=== PATIENT | female | born 1955 | race Caucasian/White ===

== ENCOUNTER 2017-03-29 09:30 | Day surgery (SDC) | payer BC ==
[~2017-03-29 09:30] MED LIST: Lactated Ringers 1,000 ML IV SCH; Sodium Chloride 0.9% 5 ML Syringe FLUSH PRN
[2017-03-29] MEDS ORDERED: Midazolam 1 MG/ML 2 ML SDV ONE (11:07)
[2017-03-29] MEDS ORDERED: Propofol 200 MG/20 ML SDV ONE ×2 (11:07→11:43)
[2017-03-29] MEDS ORDERED: Propofol 200 MG/20 ML SDV IV ONE (11:25)
[2017-03-29] MEDS ORDERED: Midazolam 1 MG/ML 2 ML SDV IV ONE (11:25)
--- NOTE | 2017-03-29 11:32 | PCM.PN ---
- General Info Date of Service: 03/29/17 - Review of Systems Systems Review Comment:: 61 y/o female here for her initial screening colonoscopy. She is medically stable to proceed. I have discussed the proposed colonoscopy with the patient. Risks such as but not limited to bleeding and GI injury reviewed and she agrees to proceed. - Patient Data Vitals - Most Recent: Last Vital Signs Temp 98.6 F 03/29/17 09:51 Pulse 75 03/29/17 09:51 Resp 18 03/29/17 09:51 BP 137/77 03/29/17 09:51 Pulse Ox 97 03/29/17 09:51 Weight - Most Recent: 51.483 kg Med Orders - Current: Current Medications Lactated Ringer's (Ringers, Lactated) 1,000 mls @ 50 mls/hr IV ASDIRECTED VERONIKA Last Admin: 03/29/17 09:56 Dose: 50 mls/hr Sodium Chloride (Syrex Flush) 5 ml FLUSH Q8HR PRN PRN Reason: Keep Vein Open Discontinued Medications Midazolam HCl (Versed 1 Mg/Ml) Confirm Administered Dose 4 mg .ROUTE .STK-MED ONE Stop: 03/29/17 11:08 Propofol (Diprivan 20 Ml) Confirm Administered Dose 200 mg .ROUTE .STK-MED ONE Stop: 03/29/17 11:08 - Problem List Review Problem List Initiated/Reviewed/Updated: Yes - My Orders Last 24 Hours: My Active Orders 03/28/17 10:47 Resuscitation Status Routine 03/29/17 09:30 Patient to Empty Bladder [RC] ASDIRECTED Peripheral IV Care [RC] . DIRECTED Verify Patient Consent Obtain [RC] ASDIRECTED Lactated Ringers [Ringers, Lactated] 1,000 ml IV ASDIRECTED Sodium Chloride 0.9% [Syrex Flush] 5 ml FLUSH Q8HR PRN Peripheral IV Insertion Adult [OM.PC] Routine 03/29/17 Breakfast Nothing Per Oral Diet [DIET] - Assessment Assessment:: Colon Cancer Screening - Plan Plan:: Colonoscopy
--- NOTE | 2017-03-29 12:06 | PCM.OPNOTE ---
- General Post-Op/Procedure Note Date of Surgery/Procedure: 03/29/17 Operative Procedure(s): Colonoscopy Findings: Moderate sized hemorrhoids, colon otherwise normal Pre Op Diagnosis: Colon Cancer Screening Post-Op Diagnosis: Hemorrhoids Anesthesia Technique: MAC Primary Surgeon: Matt Starks Pathology: none Output, Urine Amount: 0 EBL in mLs: 0 Complications: None Condition: Good
--- NOTE | 2017-03-29 21:10 | OR ---
DATE OF SURGERY: 03/29/2017 SURGEON: Matt Starks MD REFERRING PHYSICIAN: Annetta Villareal MD PREOPERATIVE DIAGNOSIS: Colon cancer screening. POSTOPERATIVE DIAGNOSIS: Hemorrhoids. OPERATION PERFORMED: Colonoscopy. INDICATIONS FOR SURGERY: This 61-year-old female was referred for her initial screening colonoscopy. She is medically stable to proceed. She denies any known family history of colon cancer. FINDINGS: The patient's colon appears normal. She does have moderate-sized internal and external hemorrhoids. DESCRIPTION OF PROCEDURE: The patient was taken to the operating room. She was given intravenous sedation and with her in the left lateral decubitus position, a digital rectal exam was performed showing no rectal masses. The Olympus colonoscope was inserted into the rectum. Retroflexed examination of the rectal canal was performed. The scope was then carefully advanced under direct visualization through the entire length of the colon until the cecum was reached. Cecal acquisition was confirmed by noting the normal internal cecal anatomy including the appendiceal orifice and ileocecal valve. The light was also noted to transilluminate the abdominal wall in the right lower quadrant. After examining the cecum, the scope was slowly withdrawn, sequentially re-examining the colonic segments until the entire colon and rectum had been fully examined. The scope was then removed, and the patient was taken from the operating room in satisfactory condition. ESTIMATED BLOOD LOSS: Zero. COMPLICATIONS: None. PROGNOSIS: Good. /[id number]/MODL
== END 2017-03-29 13:10 | disposition home or self-care (01) ==
LOC: KA.SDS 09:30
PROVIDERS: ATTEND Surgery
DX: Z12.11 Encounter for screening for malignant neoplasm of colon (principal); K64.8 Other hemorrhoids; K64.4 Residual hemorrhoidal skin tags; F41.9 Anxiety disorder, unspecified; E16.2 Hypoglycemia, unspecified; Z88.2 Allergy status to sulfonamides; Z88.8 Allergy status to other drugs, medicaments and biological substances; J30.1 Allergic rhinitis due to pollen; J30.81 Allergic rhinitis due to animal (cat) (dog) hair and dander; Z79.899 Other long term (current) drug therapy
CPT/HCPCS: 45378; J2250; J2704; J7120